=== PATIENT | female | born 1935 | race Caucasian/White ===

== ENCOUNTER 2017-04-22 13:16 | Inpatient (IN) | payer OTHER ==
[~2017-04-22] VITALS: Ht 162.6 cm; Wt 70.8 kg
[~2017-04-22 13:16] MED LIST: ALBUTEROL2.5 MG/3 M IH; ASPIR 8181 M1 PO; ASPIRIN81 M2 PO; ELIQUIS5 MG PO; PROBIOTIC1 EAC1 PO; SYNTHROID88 MCG PO; SYSTANE BALANCE10 ML BOTH EYES; TYLENOL REGULA325 MG PO
[2017-04-22 13:54] LABS: HEMATOCRIT 39.8 % (36.0-46.0); MCH 28.9 PG (29.0-34.0); MCHC 31.4 G/DL (30.0-36.0); MCV 92.1 FL (83-99); MEAN PLAT.VOLUME 11.3 uM^3 (9.5-12.4); PLATELET COUNT 178 K/uL (156-360); RBC DIS.WIDTH-CV 14.6 % (11.8-14.6); RBC DIS.WIDTH-SD 50.3 % (39-53); RED BLOOD COUNT 4.32 M/uL (3.80-5.20); WHITE BLOOD COUNT 5.2 K/uL (4.1-10.2)
[2017-04-22 14:05] LABS: CHLORIDE 108 mEq/L (99-109); SODIUM 139 mEq/L (136-147)
[2017-04-22 14:07] LABS: GLUCOSE 92 mg/dL (70-99)
[2017-04-22 14:09] LABS: ANION GAP 6 MEQ/L (2-14); TOTAL BILIRUBIN 0.4 mg/dL (0.0-1.0)
[2017-04-22 14:11] LABS: ALKALINE PHOSPHATASE 110 IU/L (3-129); GFR ESTIMATE (CALCULATED) > 59 mL/min/
[2017-04-22 14:12] LABS: UREA NITROGEN (BUN) 19 mg/dL (9-23)
[2017-04-22 14:17] LABS: TROP-I INTERPRETATION NEGATIVE; TROPONIN-I 0.01 ng/mL (0.0-0.30)
[2017-04-22] MEDS ORDERED: PROVENTIL,2.5 MG/3 M IH (17:00)
[2017-04-22 18:10] VITALS: BP 130/58
[2017-04-22 19:24] LABS: TROP-I INTERPRETATION NEGATIVE; TROPONIN-I 0.03 ng/mL (0.0-0.30)
[2017-04-22 19:32] VITALS: BP 109/55
[2017-04-22 23:32] VITALS: BP 137/83
[2017-04-23 01:02] LABS: TROP-I INTERPRETATION NEGATIVE; TROPONIN-I 0.02 ng/mL (0.0-0.30)
[2017-04-23 03:43] VITALS: BP 140/75
[2017-04-23 07:30] VITALS: BP 135/67
[2017-04-23 07:54] LABS: EOSINOPHIL (%) 1.2 % (0-5); EOSINOPHIL COUNT 0.1 K/uL (0-0.3); HEMATOCRIT 37.3 % (36.0-46.0); IMMATURE GRANULOCYTE (%) 0.5 % (0.0-0.7); INSTRUMENT ABS NEUTROPHIL CT 2.6 K/uL; LYMPHOCYTE COUNT 1.2 K/uL (1.0-2.8); MCH 29.2 PG (29.0-34.0); MCHC 31.9 G/DL (30.0-36.0); MCV 91.6 FL (83-99); MEAN PLAT.VOLUME 11.5 uM^3 (9.5-12.4); MONOCYTE (%) 10.4 % (3-12); MONOCYTE COUNT 0.5 K/uL (0-0.8); NEUTROPHIL (%) 58.8 % (45-76); NEUTROPHIL COUNT 2.6 K/uL (1.8-6.4); PLATELET COUNT 171 K/uL (156-360); RBC DIS.WIDTH-CV 14.6 % (11.8-14.6); RBC DIS.WIDTH-SD 49.4 % (39-53); RED BLOOD COUNT 4.07 M/uL (3.80-5.20); WHITE BLOOD COUNT 4.3 K/uL (4.1-10.2)
[2017-04-23 08:17] LABS: ANION GAP 6 MEQ/L (2-14); CHLORIDE 108 MEQ/L (99-109); GFR ESTIMATE (CALCULATED) > 59 mL/min/; GLUCOSE 86 mg/dL (70-99); POTASSIUM 4.1 MEQ/L (3.7-5.4); SAMPLE HEMOLYSIS CHECK 0; SAMPLE ICTERIC CHECK 0; SAMPLE LIPEMIA CHECK 0; SODIUM 140 MEQ/L (136-147); UREA NITROGEN (BUN) 14 mg/dL (9-23)
[2017-04-23 08:20] LABS: TROP-I INTERPRETATION NEGATIVE; TROPONIN-I 0.02 ng/mL (0.0-0.30)
[2017-04-23 11:10] VITALS: BP 143/65
[2017-04-23 15:30] VITALS: BP 157/82
[2017-04-23 19:50] VITALS: BP 134/69
[2017-04-23 23:22] VITALS: BP 147/71
[2017-04-24 05:48] VITALS: BP 157/76
[2017-04-24 09:09] VITALS: BP 164/96
[2017-04-24 09:40] LABS: POINT-OF-CARE METER ID UU13113781
[2017-04-24 11:40] VITALS: BP 144/80
[2017-04-24 15:48] VITALS: BP 128/77
[2017-04-24 19:24] VITALS: BP 125/85
[2017-04-24 22:24] VITALS: BP 150/80
[2017-04-25 04:22] VITALS: BP 122/78
[2017-04-25 08:00] VITALS: BP 143/97
[2017-04-25 11:51] VITALS: BP 131/67
[2017-04-25 17:14] VITALS: BP 171/96
[2017-04-25 19:23] VITALS: BP 135/95
[2017-04-25 23:27] VITALS: BP 154/72
[2017-04-26 05:20] VITALS: BP 135/74
[2017-04-26 05:36] LABS: EOSINOPHIL (%) 0.8 % (0-5); EOSINOPHIL COUNT 0.1 K/uL (0-0.3); HEMATOCRIT 39.5 % (36.0-46.0); IMMATURE GRANULOCYTE (%) 0.5 % (0.0-0.7); INSTRUMENT ABS NEUTROPHIL CT 4.1 K/uL; LYMPHOCYTE COUNT 1.5 K/uL (1.0-2.8); MCH 29.3 PG (29.0-34.0); MCHC 32.4 G/DL (30.0-36.0); MCV 90.4 FL (83-99); MEAN PLAT.VOLUME 11.1 uM^3 (9.5-12.4); MONOCYTE (%) 11.5 % (3-12); MONOCYTE COUNT 0.7 K/uL (0-0.8); NEUTROPHIL (%) 62.9 % (45-76); NEUTROPHIL COUNT 4.1 K/uL (1.8-6.4); PLATELET COUNT 134 K/uL (156-360); RBC DIS.WIDTH-CV 14.6 % (11.8-14.6); RBC DIS.WIDTH-SD 48.2 % (39-53); RED BLOOD COUNT 4.37 M/uL (3.80-5.20); WHITE BLOOD COUNT 6.5 K/uL (4.1-10.2)
[2017-04-26 06:00] LABS: ANION GAP 7 MEQ/L (2-14); CHLORIDE 106 MEQ/L (99-109); GFR ESTIMATE (CALCULATED) > 59 mL/min/; GLUCOSE 106 mg/dL (70-99); SAMPLE HEMOLYSIS CHECK 0; SAMPLE ICTERIC CHECK 0; SAMPLE LIPEMIA CHECK 0; SODIUM 136 MEQ/L (136-147); UREA NITROGEN (BUN) 17 mg/dL (9-23)
[2017-04-26 07:48] VITALS: BP 131/60
[2017-04-26 11:12] VITALS: BP 117/70
[2017-04-26] MEDS ORDERED: CARDIZEM30 MG PO (14:04)
== END 2017-04-26 16:33 | disposition home or self-care (01) | DRG 244 ==
LOC: EME 13:16 → EDOF 16:47 → 4EAST 16:47 → ENRESERV 16:49 → 4EAST 18:02
PROVIDERS: Emergency Medicine; Hospitalist; Internal Medicine
DX: I48.0 Paroxysmal atrial fibrillation (principal); I49.5 Sick sinus syndrome; E03.9 Hypothyroidism, unspecified; I10 Essential (primary) hypertension; F41.9 Anxiety disorder, unspecified; F32.9 Major depressive disorder, single episode, unspecified; Z87.891 Personal history of nicotine dependence; I05.9 Rheumatic mitral valve disease, unspecified; E66.9 Obesity, unspecified; Z68.26 Body mass index [BMI] 26.0-26.9, adult
CPT/HCPCS: 71010; 80048; 80053; 81003; 82948; 83735; 84443; 84484; 85025; 85027; 93005; 99202; 99281; 99285; C1785; C1892; C1894; C1898; J2250; J3010; J7040; J7050; S0020

== ENCOUNTER 2017-12-26 11:48 | Day surgery (SDC) | payer OTHER ==
[~2017-12-26] VITALS: Ht 162.6 cm; Wt 68.0 kg
[~2017-12-26 11:48] MED LIST changes: +CARDIZEM30 MG PO; +COUMADIN2 MG PO; +COUMADIN3 MG PO; +LOVENOX100 MG/1 M SC; +PROVENTIL,2.5 MG/3 M IH; +TYLENOL EXTRA500 MG PO; -TYLENOL REGULA325 MG PO
== END 2017-12-26 14:16 | disposition home or self-care (01) ==
LOC: CATH 11:48
PROC: 0JPT0YZ Removal of Other Device from Trunk Subcutaneous Tissue and Fascia, Open Approach (ICD-10-PCS; principal; 2017-12-26)
DX: T85.692A Other mechanical complication of permanent sutures, initial encounter (principal); Y83.1 Surgical operation with implant of artificial internal device as the cause of abnormal reaction of the patient, or of later complication, without mention of misadventure at the time of the procedure; I48.0 Paroxysmal atrial fibrillation; I49.3 Ventricular premature depolarization; I05.9 Rheumatic mitral valve disease, unspecified; I49.5 Sick sinus syndrome; Z95.0 Presence of cardiac pacemaker; I82.90 Acute embolism and thrombosis of unspecified vein; Z79.01 Long term (current) use of anticoagulants; Z88.8 Allergy status to other drugs, medicaments and biological substances; Z91.041 Radiographic dye allergy status
CPT/HCPCS: S0020